=== PATIENT | female | born 1985 | race Two or more races ===

== ENCOUNTER 2023-10-21 16:57 | Emergency (ER) | payer BC ==
[~2023-10-21] VITALS: Ht 177.8 cm; Wt 70.3 kg
[2023-10-21] MEDS ORDERED: GABAPENTIN100 M2 PO (17:41)
[2023-10-21] MEDS ORDERED: ELIQUIS5 MG PO (17:41)
[2023-10-21] MEDS ORDERED: MAGNESIUM OXID400 M1 PO (17:41)
[2023-10-21] MEDS ORDERED: RA SENNA PLUS1 EACH PO (17:41)
[2023-10-21] MEDS ORDERED: BUPROPION HCL100 M1 PO (17:41)
[2023-10-21] MEDS ORDERED: SERTRALINE HCL50 MG PO (17:41)
[2023-10-21] MEDS ORDERED: ROSUVASTATIN CA20 MG PO (17:42)
== END 2023-10-21 18:54 | disposition home or self-care (01) ==
LOC: ER 16:59
DX: S01.81XA Laceration without foreign body of other part of head, initial encounter (principal); X58.XXXA Exposure to other specified factors, initial encounter; Y93.89 Activity, other specified; Y92.89 Other specified places as the place of occurrence of the external cause; Y99.8 Other external cause status